=== PATIENT | female | born 2000 | race Caucasian/White ===

== ENCOUNTER 2021-07-31 05:21 | Emergency (ER) | payer BC ==
[2021-07-31] MEDS ORDERED: Acetaminophen 500 MG TAB ONE (05:34)
[2021-07-31] MEDS ORDERED: Ondansetron PF 4 MG/2 ML Vial ONE ×2 (05:34→05:40)
== END 2021-07-31 08:48 | disposition home or self-care (01) ==
LOC: ERS 05:21
DX: E86.0 Dehydration (principal); J02.9 Acute pharyngitis, unspecified
CPT/HCPCS: 87081; 87430; 87804; 96374; J2405